=== PATIENT | male | born 1980 | race Caucasian/White ===

== ENCOUNTER → 2018-07-20 | Outpatient (CLI) | payer BC ==
--- NOTE | 2018-07-20 15:47 | US ---
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 M7 9.662 PAIN IN LEFT LOWER LEG. Technique: Multiple sonographic images of the Achilles tendon, catheter, and lower posterior thigh al seven the site of patient's pain. Findings: The Achilles tendon is normal thickness with normal fibrillar architecture and no evidence for tear. No abnormal fluid within the calf musculature or along the myofascial planes. Additional scanning along the posterior aspect of the distal thigh also shows no gross sonographic ab normality. IMPRESSION: 1. Normal appearance to the Achilles tendon. 2. No specific sonographic findings of tennis leg. Further assessment with MRI can be considered if p ersistent clinical concern.
== END | disposition home or self-care (01) ==
LOC: RADUSWWP 14:57
PROVIDERS: ATTEND Family Medicine
DX: M79.662 Pain in left lower leg (principal)

== ENCOUNTER 2019-11-01 17:19 | Emergency (ER) | payer BC ==
[2019-11-01 17:26] VITALS: TEMP 98.4
[2019-11-01] MEDS ORDERED: MORPHINE SULFATE 4 MG/ML SYRINGE IVP STA ×3 (17:52→19:31)
[2019-11-01] MEDS ORDERED: SODIUM CHLORIDE 0.9% 1,000 ML IV STA (18:03)
[2019-11-01 18:11] LABS: Basophils # (A) 0.1 k/uL (0-0.2); Basophils % (A) 1 %; Eosinophils # (A) 0.1 k/uL (0-0.7); Eosinophils % (A) 1 %; HCT 46.9 % (39.0-53.0); HGB 15.5 gm/dL (13.0-17.5); Lymphocytes # (A) 2.4 k/uL (1.0-4.8); Lymphocytes % (A) 29 %; MCH 28.9 pg (25.0-35.0); MCHC 33.2 g/dL (31.0-37.0); MCV 87.2 fL (80.0-100.0); Mean Platelet Volume 7.2; Monocytes # (A) 0.5 k/uL (0-1.0); Monocytes % (A) 6 %; Neutrophils % (A) 60 %; Platelet Count 253 k/uL (150-450); RBC 5.38 m/uL (4.30-5.90); WBC 8.4 k/uL (3.8-10.6)
[2019-11-01 18:20] LABS: Albumin 5.1 g/dL (3.5-5.0); Calcium 9.9 mg/dL (8.4-10.2); Potassium 3.9 mmol/L (3.5-5.1); Total Bilirubin 0.5 mg/dL (0.2-1.3); Total Protein 7.9 g/dL (6.3-8.2)
[2019-11-01] MEDS ORDERED: ONDANSETRON 4 MG/2 ML VIAL IVP STA (18:34)
[2019-11-01 18:59] LABS: Amorphous Sediment,Urine Rare /hpf; Appearance,Urine Clear (Clear); Bilirubin,Urine Negative (Negative); Blood,Urine Moderate (Negative); Color,Urine Yellow; Glucose,Urine (UA) Negative (Negative); Ketones,Urine Negative (Negative); Leukocyte Esterase,Urine Negative (Negative); Mucus,Urine Rare /hpf; Nitrite,Urine Negative (Negative); PH, Urine 6.5 (5.0-8.0); Protein,Urine Trace (Negative); RBC,Urine >182 /hpf (0-5); Specific Gravity,Urine 1.022 (1.001-1.035); Urobilinogen,Urine <2.0 mg/dL (<2.0); WBC,Urine 3 /hpf (0-5)
--- NOTE | 2019-11-01 19:37 | ED ---
Abdominal Pain HPI - General Chief Complaint: Abdominal Pain Stated Complaint: LT sided flank pain Time Seen by Provider: 11/01/19 17:33 Source: patient Mode of arrival: wheelchair Limitations: no limitations - History of Present Illness Initial Comments: Patient is a 39-year-old male presenting to emergency Department with a chief complaint of flank pain. Patient reports it started about 1.5 hours prior to ED arrival. He states the pain was mild last night before going to bed and did not think much of it until is started today. Denies any nausea vomiting diarrhea. Denies any night sweats fevers or chills. Does report mild obstructive urinary symptoms but started to pass urine. Denies hematuria, hematochezia or melena. Reports the pain radiates from the left flank region to the left groin. Denies any testicular pain or swelling. Denies taking medication to alleviate his symptoms. No history of kidney stones or any intra-abdominal pathologies. Patient has family history of kidney stones. - Related Data Previous Rx's Medication Instructions Recorded Tamsulosin [Flomax] 0.4 mg PO DAILY #7 cap 11/01/19 Allergies Allergy/AdvReac Type Severity Reaction Status Date / Time No Known Allergies Allergy Verified 11/01/19 17:26 Review of Systems ROS Statement: Those systems with pertinent positive or pertinent negative responses have been documented in the HPI. ROS Other: All systems not noted in ROS Statement are negative. Past Medical History Past Medical History: No Reported History History of Any Multi-Drug Resistant Organisms: None Reported Past Surgical History: No Surgical Hx Reported Past Psychological History: No Psychological Hx Reported Smoking Status: Never smoker Past Alcohol Use History: None Reported Past Drug Use History: None Reported General Exam Limitations: no limitations General appearance: alert, in distress Head exam: Present: atraumatic, normocephalic, normal inspection Eye exam: Present: normal appearance, PERRL, EOMI Pupils: Present: normal accommodation ENT exam: Present: normal exam Neck exam: Present: normal inspection, full ROM Respiratory exam: Present: normal lung sounds bilaterally Cardiovascular Exam: Present: regular rate, normal rhythm, normal heart sounds GI/Abdominal exam: Present: soft, tenderness (Left lower quadrant pain). Absent: distended, guarding, rebound, rigid, mass Extremities exam: Present: normal inspection, full ROM Back exam: Present: normal inspection, full ROM, CVA tenderness (L) Neurological exam: Present: alert, oriented X3 Psychiatric exam: Present: normal affect, normal mood Skin exam: Present: warm, dry, intact, normal color Course Vital Signs 11/01/19 11/01/19 17:24 20:54 Temperature 98.4 F Pulse Rate 86 80 Respiratory 22 16 Rate Blood Pressure 145/89 129/79 O2 Sat by Pulse 99 99 Oximetry Medical Decision Making - Medical Decision Making Patient is a 39-year-old male presenting to emergency Department with a chief complaint of left flank pain region. Eye exam patient does have left CVA tenderness with left flank pain radiating to the left groin. exam unremarkable. Patient was given symptomatic control. On reevaluation patient states the pain is still there was given more analgesia. CBC unremarkable. CMP shows decreased kidney function which I suspect is secondary to hydronephrosis. Urine does show moderate amounts of blood. CT does show a left-sided 4 mm renal calculi with mild to moderate hydronephrosis. Patient given some symptomatic control and will be discharged to follow-up with urologist. Patient also given Flomax. Patient advised to follow-up with primary care regarding decreased renal function. Strict return parameters were thoroughly discussed with patient was understanding and agreeable. Case discussed with physician. - Lab Data Result diagrams: 11/01/19 17:50 11/01/19 17:50 Lab Results 11/01/19 11/01/19 11/01/19 Range/Units 17:50 17:50 18:23 WBC 8.4 (3.8-10.6) k/uL RBC 5.38 (4.30-5.90) m/uL Hgb 15.5 (13.0-17.5) gm/dL Hct 46.9 (39.0-53.0) % MCV 87.2 (80.0-100.0) fL MCH 28.9 (25.0-35.0) pg MCHC 33.2 (31.0-37.0) g/dL RDW 13.0 (11.5-15.5) % Plt Count 253 (150-450) k/uL Neutrophils % 60 % Lymphocytes % 29 % Monocytes % 6 % Eosinophils % 1 % Basophils % 1 % Neutrophils # 5.0 (1.3-7.7) k/uL Lymphocytes # 2.4 (1.0-4.8) k/uL Monocytes # 0.5 (0-1.0) k/uL Eosinophils # 0.1 (0-0.7) k/uL Basophils # 0.1 (0-0.2) k/uL Sodium 139 (137-145) mmol/L Potassium 3.9 (3.5-5.1) mmol/L Chloride 101 (98-107) mmol/L Carbon Dioxide 27 (22-30) mmol/L Anion Gap 11 mmol/L BUN 22 H (9-20) mg/dL Creatinine 1.52 H (0.66-1.25) mg/dL Est GFR (CKD-EPI)AfAm 66 (>60 ml/min/1.73 sqM) Est GFR (CKD-EPI)NonAf 57 (>60 ml/min/1.73 sqM) Glucose 113 H (74-99) mg/dL Calcium 9.9 (8.4-10.2) mg/dL Total Bilirubin 0.5 (0.2-1.3) mg/dL AST 34 (17-59) U/L ALT 33 (4-49) U/L Alkaline Phosphatase 101 (38-126) U/L Total Protein 7.9 (6.3-8.2) g/dL Albumin 5.1 H (3.5-5.0) g/dL Amylase 109 (30-110) U/L Lipase 246 (23-300) U/L Urine Color Yellow Urine Appearance Clear (Clear) Urine pH 6.5 (5.0-8.0) Ur Specific [place] 1.022 (1.001-1.035) Urine Protein Trace H (Negative) Urine Glucose (UA) Negative (Negative) Urine Ketones Negative (Negative) Urine Blood Moderate H (Negative) Urine Nitrite Negative (Negative) Urine Bilirubin Negative (Negative) Urine Urobilinogen <2.0 (<2.0) mg/dL Ur Leukocyte Esterase Negative (Negative) Urine RBC >182 H (0-5) /hpf Urine WBC 3 (0-5) /hpf Amorphous Sediment Rare H (None) /hpf Urine Mucus Rare H (None) /hpf Disposition Clinical Impression: Hydronephrosis concurrent with and due to calculi of kidney and ureter, Kidney stone on left side Disposition: HOME SELF-CARE Condition: Stable Instructions (If sedation given, give patient instructions): Kidney Stones (ED) Additional Instructions: Please follow up with urology. Please return to emergency department if symptoms worsen. Prescriptions: Tamsulosin [Flomax] 0.4 mg PO DAILY #7 cap Is patient prescribed a controlled substance at d/c from ED?: No Referrals: Maged Hunter MD [Primary Care Provider] - 1-2 days Iker Pollard MD [STAFF PHYSICIAN] - 1-2 days Time of Disposition: 20:27
[2019-11-01] MEDS ORDERED: DIAZEPAM 5 MG/ML 2 ML INJ IVP STA (19:47)
[2019-11-01] MEDS ORDERED: KETOROLAC 30 MG/ML 1 ML VIAL IVP STA (19:47)
--- NOTE | 2019-11-01 20:02 | XR ---
EXAMINATION TYPE: XR KUB DATE OF EXAM: 11/01/2019 COMPARISON: CT 11/01/2019 INDICATION: Left flank pain TECHNIQUE: Single view abdomen FINDINGS: Nonspecific bowel gas is present. Psoas margins are normal. No organomegaly is present. There is a 0.7 cm calcification in the right hemipelvis could be a distal ureteral stone. Phleboliths could be considered within the differential. The calcification identified just above the left ureterovesical junction on CT examination is not willi[place] evident on the plain films. IMPRESSION: 1. Distal right calcification which is nonspecific could be a distal ureteral stone or phlebolith. 2. No suspicious x-ray abnormality to account for left flank pain, please see CT report of same date.
--- NOTE | 2019-11-01 20:13 | CT ---
EXAMINATION TYPE: CT abdomen pelvis wo con DATE OF EXAM: 11/01/2019 COMPARISON: None HISTORY: Left sided flank and inguinal pain. CT DLP: 1033.4 mGycm Automated exposure control for dose reduction was used. TECHNIQUE: Helical acquisition of images was performed from the lung bases through the pelvis. FINDINGS: Within the limitations of noncontrast CT the following observations are made. LUNG BASES: No significant abnormality is appreciated. LIVER/GB: No significant abnormality is appreciated. PANCREAS: No significant abnormality is seen. SPLEEN: No significant abnormality is seen. ADRENALS: No significant abnormality is seen. KIDNEYS AND URETERS AND BLADDER: There is mild-moderate left-sided hydronephrosis and hydroureter, do wn to a 4 mm calcification in the distal most left ureter, approximately 2 cm proximal to the left UV J. There are a couple 1 mm nonobstructing left renal calcifications. The right kidney and right collecting systems are negative. The urinary bladder is unremarkable. PNEUMOPERITONEUM: No pneumoperitoneum. No peritoneal fluid. RETROPERITONEAL ADENOPATHY: None visualized REPRODUCTIVE ORGANS: No significant abnormality is seen PELVIC ADENOPATHY: None visualized. OSSEOUS STRUCTURES: No significant abnormality is seen. BOWEL: No significant abnormality is seen. IMPRESSION: MILD-MODERATE LEFT OBSTRUCTIVE UROPATHY, SECONDARY TO 4 MM CALCIFICATION IN THE DISTAL LEFT URETER.
[2019-11-01] MEDS ORDERED: ACET/COD 300 MG/30 MG STARTER PACK 6 TAB BTL PO STA (20:26)
[2019-11-01 20:56] VITALS: BP 129/79; PULSE 80; RESP 16
== END 2019-11-01 21:00 | disposition home or self-care (01) ==
LOC: EC 17:19
DX: N13.2 Hydronephrosis with renal and ureteral calculous obstruction (principal); Z84.1 Family history of disorders of kidney and ureter; Z53.8 Procedure and treatment not carried out for other reasons
CPT/HCPCS: 99284; 96374; 96375 ×3; 96376; 96361; 36415; 80053; 82150; 83690; 85025; 81001; 74018; 74176; J2270; J3360; J2405; J1885

== ENCOUNTER 2019-11-03 03:49 | Emergency (ER) | payer BC ==
[2019-11-03] MEDS ORDERED: SODIUM CHLORIDE 0.9% 1,000 ML IV STA (04:01)
[2019-11-03] MEDS ORDERED: ONDANSETRON ODT 8 MG TAB.RAPDIS PO STA (04:01)
[2019-11-03] MEDS ORDERED: KETOROLAC 30 MG/ML 1 ML VIAL IVP STA (04:01)
--- NOTE | 2019-11-03 04:01 | ED ---
General Adult HPI - General Stated complaint: Kidney Stone Revisit Time Seen by Provider: 11/03/19 04:00 - History of Present Illness Initial comments: Patient is a 39-year-old gentleman with a known psych any stone which was identified on computed tomography scan 3 days ago. Patient returns the ER this morning for evaluation of severe stabbing left-sided flank pain. Pain is associated nausea no vomiting. Urinary frequency but no hesitancy or dysuria. She reports he's been drinking as much as possible trying to stay hydrated. He's been taking Tylenol 3 with no improvement. He has taken a daily Flomax with no improvement. - Related Data Previous Rx's Medication Instructions Recorded Tamsulosin [Flomax] 0.4 mg PO DAILY #7 cap 11/01/19 Ketorolac [Toradol] 10 mg PO Q6HR #30 tab 11/03/19 Allergies Allergy/AdvReac Type Severity Reaction Status Date / Time No Known Allergies Allergy Verified 11/03/19 04:03 Review of Systems ROS Statement: Those systems with pertinent positive or pertinent negative responses have been documented in the HPI. ROS Other: All systems not noted in ROS Statement are negative. Past Medical History Past Medical History: No Reported History History of Any Multi-Drug Resistant Organisms: None Reported Past Surgical History: No Surgical Hx Reported Past Psychological History: No Psychological Hx Reported Smoking Status: Never smoker Past Alcohol Use History: None Reported Past Drug Use History: None Reported General Exam - General Exam Comments Initial Comments: Physical Exam GENERAL: Patient is well-developed and well-nourished. Patient is nontoxic and well-hydrated and is in no distress. HENT: Normocephalic, Atraumatic. EYES: PERRL, EOMI PULMONARY: Unlabored respirations. CARDIOVASCULAR: RRR Warm and well perfused extremities ABDOMEN: Non-distended SKIN: No rashes or bruising : Deferred NEUROLOGIC: Alert and oriented Normal speech Normal gait MUSCULOSKELETAL: Moving all extremities with no apparent injury PSYCHIATRIC: No SI/HI Course Vital Signs 11/03/19 11/03/19 03:59 05:28 Temperature 98.6 F 98.6 F Pulse Rate 92 78 Respiratory 22 15 Rate Blood Pressure 143/83 122/79 O2 Sat by Pulse 100 98 Oximetry Medical Decision Making - Medical Decision Making The patient seen and evaluated, history was obtained from the patient and review of medical record. Patient was treated with IV fluids Zofran and Toradol. Upon reevaluation patient complete resolution of his pain was resting comfortably. Patient referral plan for discharge home continued supportive care. - Lab Data Result diagrams: 11/03/19 04:17 11/03/19 04:17 Lab Results 11/03/19 11/03/19 11/03/19 Range/Units 04:17 04:17 04:17 WBC 11.8 H (3.8-10.6) k/uL RBC 4.95 (4.30-5.90) m/uL Hgb 15.0 (13.0-17.5) gm/dL Hct 43.1 (39.0-53.0) % MCV 87.1 (80.0-100.0) fL MCH 30.2 (25.0-35.0) pg MCHC 34.7 (31.0-37.0) g/dL RDW 12.7 (11.5-15.5) % Plt Count 206 (150-450) k/uL Neutrophils % 84 % Lymphocytes % 9 % Monocytes % 6 % Eosinophils % 0 % Basophils % 0 % Neutrophils # 9.9 H (1.3-7.7) k/uL Lymphocytes # 1.0 (1.0-4.8) k/uL Monocytes # 0.7 (0-1.0) k/uL Eosinophils # 0.0 (0-0.7) k/uL Basophils # 0.0 (0-0.2) k/uL Sodium 135 L (137-145) mmol/L Potassium 4.7 (3.5-5.1) mmol/L Chloride 101 (98-107) mmol/L Carbon Dioxide 24 (22-30) mmol/L Anion Gap 10 mmol/L BUN 26 H (9-20) mg/dL Creatinine 1.64 H (0.66-1.25) mg/dL Est GFR (CKD-EPI)AfAm 60 (>60 ml/min/1.73 sqM) Est GFR (CKD-EPI)NonAf 52 (>60 ml/min/1.73 sqM) Glucose 114 H (74-99) mg/dL Calcium 9.5 (8.4-10.2) mg/dL Total Bilirubin 1.1 (0.2-1.3) mg/dL AST 37 (17-59) U/L ALT 27 (4-49) U/L Alkaline Phosphatase 92 (38-126) U/L Total Protein 7.4 (6.3-8.2) g/dL Albumin 4.6 (3.5-5.0) g/dL Urine Color Yellow Urine Appearance Clear (Clear) Urine pH 5.5 (5.0-8.0) Ur Specific [place] 1.020 (1.001-1.035) Urine Protein Trace H (Negative) Urine Glucose (UA) Negative (Negative) Urine Ketones Negative (Negative) Urine Blood Moderate H (Negative) Urine Nitrite Negative (Negative) Urine Bilirubin Negative (Negative) Urine Urobilinogen <2.0 (<2.0) mg/dL Ur Leukocyte Esterase Trace H (Negative) Urine RBC 3 (0-5) /hpf Urine WBC 5 (0-5) /hpf Ur Squamous Epith Cells <1 (0-4) /hpf Uric Acid Crystals Rare H (None) /hpf Urine Mucus Rare H (None) /hpf Disposition Clinical Impression: Kidney stone on left side Disposition: HOME SELF-CARE Condition: Stable Additional Instructions: Follow up with your primary doctor within 2-3 days. Follow up with a Urologist this week (we will give you a list of urologists, but make sure they accept your insurance). ?Please call as soon as possible for an appointment. You will be given a prescription for Flomax (0.4mg daily) please rock picker the medication as soon as possible and take as directed. Use Motrin (also called Ibuprofen or Advil) 400-800 mg every 6 hours as needed for pain. Take this with food, if you have any stomach discomfort while taking Motrin, you can use TUMS to help. Drink plenty of fluids, avoid caffeine & alcohol. Please continue taking your home medications as directed. Do not use alcohol when taking any medication (especially antibiotics, tylenol or other pain medication) unless you check with the doctor or pharmacist. Any worsening pain, fever, chills, difficulty urinating, or any other concerns, please see your doctor immediately or return to Emergency Department right away. Prescriptions: Ketorolac [Toradol] 10 mg PO Q6HR #30 tab Is patient prescribed a controlled substance at d/c from ED?: No Referrals: Maged Hunter MD [Primary Care Provider] - 1-2 days
[2019-11-03 04:03] VITALS: TEMP 98.6
--- NOTE | 2019-11-03 04:33 | XR ---
EXAMINATION TYPE: XR KUB DATE OF EXAM: 11/03/2019 COMPARISON: 11/01/2019 HISTORY: Left sided flank pain TECHNIQUE: 2 views upright FINDINGS: There is no sign of intestinal obstruction or pneumoperitoneum. Fecal pattern is normal. Th ere are no pathologic calcifications over the kidneys. Lung bases are clear. Bony structures are inta ct. IMPRESSION: Nonacute abdomen. No change.
[2019-11-03 04:42] LABS: Basophils % (A) 0 %; Eosinophils % (A) 0 %; HCT 43.1 % (39.0-53.0); Lymphocytes % (A) 9 %; MCH 30.2 pg (25.0-35.0); MCHC 34.7 g/dL (31.0-37.0); MCV 87.1 fL (80.0-100.0); Mean Platelet Volume 7.2; Monocytes # (A) 0.7 k/uL (0-1.0); Monocytes % (A) 6 %; Neutrophils # (A) 9.9 k/uL (1.3-7.7); Neutrophils % (A) 84 %; Platelet Count 206 k/uL (150-450); RBC 4.95 m/uL (4.30-5.90); RDW 12.7 % (11.5-15.5); WBC 11.8 k/uL (3.8-10.6)
[2019-11-03 04:46] LABS: Appearance,Urine Clear (Clear); Bilirubin,Urine Negative (Negative); Blood,Urine Moderate (Negative); Color,Urine Yellow; Glucose,Urine (UA) Negative (Negative); Ketones,Urine Negative (Negative); Leukocyte Esterase,Urine Trace (Negative); Mucus,Urine Rare /hpf; Nitrite,Urine Negative (Negative); PH, Urine 5.5 (5.0-8.0); Protein,Urine Trace (Negative); RBC,Urine 3 /hpf (0-5); Squamous Epithelial Cell,Urine <1 /hpf (0-4); Uric Acid Crystals,Urine Rare /hpf; Urobilinogen,Urine <2.0 mg/dL (<2.0); WBC,Urine 5 /hpf (0-5)
[2019-11-03 04:54] LABS: Albumin 4.6 g/dL (3.5-5.0); Calcium 9.5 mg/dL (8.4-10.2); Potassium 4.7 mmol/L (3.5-5.1); Total Bilirubin 1.1 mg/dL (0.2-1.3); Total Protein 7.4 g/dL (6.3-8.2)
[2019-11-03 05:30] VITALS: BP 122/79; PULSE 78; RESP 15
== END 2019-11-03 05:12 | disposition home or self-care (01) ==
LOC: EC 03:49
DX: N20.0 Calculus of kidney (principal)
CPT/HCPCS: 36415; 80053; 85025; 81001; 74018; 99283; 96374; 96361; J1885

== ENCOUNTER 2020-10-31 10:05 | Day surgery (SDC) | payer BC ==
[2020-10-27 09:54] VITALS: BMI 32.7
[~2020-10-31 10:05] MED LIST: LACTATED RINGERS 1,000 ML IV SCH
[2020-10-31 10:41] VITALS: RESP 16; TEMP 97.4
[2020-10-31] MEDS ORDERED: LIDOCAINE 1% (10MG/ML) FOR IV START INTRADERMA ONE (10:44)
[2020-10-31] MEDS ORDERED: PROPOFOL 10 MG/ML 20 ML VIAL IV ONE (11:27)
--- NOTE | 2020-10-31 11:47 | P.PCN ---
Date of Procedure: 10/31/20 Procedure(s) Performed: BRIEF HISTORY: Patient is a -40year-old pleasant white male scheduled for an elective colonoscopy as a part of screening for colon rectal neoplasia. His grandfather was diagnosed with colon cancer at age 70. PROCEDURE PERFORMED: Colonoscopy this with snare polypectomy PREOPERATIVE DIAGNOSIS: Screening for colon cancer/family history of colon cancerIV sedation per Anesthesia. PROCEDURE: After informed consent was obtained, the patient, was brought into the endoscopy unit. IV sedation was administered by Anesthesia under continuous monitoring. Digital rectal examination was normal. Initially the Olympus CF-160 flexible video colonoscope was then inserted in the rectum, gradually advanced into the cecum without any difficulty. Careful examination was performed as the scope was gradually being withdrawn. Ileocecal valve and the appendiceal orifice were visualized and appeared normal. Prep was fair.. Mucosa of the cecum, ascending colon, transverse colon, descending colon, sigmoid colon, appeared normal. In the mid rectum there was a 1 m polyp removed by snare polypectomy. Retroflexion was performed in the rectum and no lesions were seen. The patient tolerated the procedure well. IMPRESSION: 1 cm mid rectal polyp status post polypectomy Rest of the colon appeared normal RECOMMENDATIONS: Findings of this examination were discussed with the patient .as well as his family. He was advised to follow with the biopsy results. If the biopsy shows an adenoma he can have a repeat colonoscopy in 3-5 years.
[2020-10-31 12:10] VITALS: BP 130/86; PULSE 68
== END 2020-10-31 12:26 | disposition home or self-care (01) ==
LOC: ORWHC2ENDO 10:05
PROVIDERS: ATTEND Internal Medicine Gastroenterology
DX: Z12.11 Encounter for screening for malignant neoplasm of colon (principal); D12.8 Benign neoplasm of rectum; Z80.0 Family history of malignant neoplasm of digestive organs
CPT/HCPCS: 88305; 45385; J2704

== ENCOUNTER 2021-08-01 15:55 | Emergency (ER) | payer BC ==
[2021-08-01 16:12] VITALS: RESP 16; TEMP 98
--- NOTE | 2021-08-01 16:50 | ED ---
General Adult HPI - General Source: patient Mode of arrival: ambulatory Limitations: no limitations <Karen Dove - Last Filed: 08/01/21 22:20> <Linda Shah - Last Filed: 08/03/21 00:59> - General Chief complaint: Shortness of Breath Stated complaint: SACHA/Lightheaded Time Seen by Provider: 08/01/21 16:35 - History of Present Illness Initial comments: 41 year-old male patient presents to the emergency department for evaluation of lightheadedness, dizziness, feeling unwell. States he had several episodes of lightheadedness prior to leaving for work. States that he thought he would improve so he drove to work. States he was going up the stairs to work when he became very dizzy, felt like he was going to pass out, states he feels like his neck was swelling. He denies any chest pain, chest tightness, or shortness of breath with the episode. States he was very sweaty and shaky. He reports feeling very hot, then very cold. He denies any chronic medical conditions. Takes some vitamins daily. Today he did take a hydroxy-lean fat burner. States that he generally takes them a couple times per week for the last few months. Never had any reaction. Patient denies any recent rash, fever, chills, cough, abdominal pain, nausea, vomiting, diarrhea, constipation, back pain, numbness, tingling, hematuria, dysuria, urinary urgency, urinary frequency, or any other complaints. (Karen Dove) - Related Data Home Medications Medication Instructions Recorded Confirmed Multivit-Min/Folic/Vit K/Lycop 1 each PO DAILY 10/27/20 10/27/20 [Men's Multivitamin Tablet] Allergies Allergy/AdvReac Type Severity Reaction Status Date / Time No Known Allergies Allergy Verified 08/01/21 16:08 Review of Systems ROS Other: All systems not noted in ROS Statement are negative. <Karen Dove - Last Filed: 08/01/21 22:20> ROS Other: All systems not noted in ROS Statement are negative. <Linda Shah - Last Filed: 08/03/21 00:59> ROS Statement: Those systems with pertinent positive or pertinent negative responses have been documented in the HPI. Past Medical History Past Medical History: No Reported History Additional Past Medical History / Comment(s): FAMILY HX COLON CANCER History of Any Multi-Drug Resistant Organisms: None Reported Past Surgical History: No Surgical Hx Reported Past Anesthesia/Blood Transfusion Reactions: Motion Sickness Additional Past Anesthesia/Blood Transfusion Reaction / Comment(s): no a nesthesia hx. Past Psychological History: No Psychological Hx Reported Smoking Status: Unknown if ever smoked Past Alcohol Use History: None Reported Past Drug Use History: None Reported - Past Family History Mother Family Medical History: Unable to Obtain <Karen Dove M - Last Filed: 08/01/21 22:20> General Exam Limitations: no limitations General appearance: alert, in no apparent distress, other (Physical well- developed, well-nourished adult male patient in no acute distress. Vital signs upon presentation temperature 98.0F, pulse 120, respirations 16, blood pressure 148/83, pulse ox 98% on room air. This is a well-developed, well-nourished adult male patient in no acute distress. Vital s) Eye exam: Present: normal appearance, PERRL, EOMI. Absent: scleral icterus, conjunctival injection, nystagmus, periorbital swelling ENT exam: Present: normal exam, normal oropharynx, mucous membranes moist Respiratory exam: Present: normal lung sounds bilaterally. Absent: respiratory distress, wheezes, rales, rhonchi, stridor Cardiovascular Exam: Present: regular rate, normal rhythm, normal heart sounds. Absent: systolic murmur, diastolic murmur, rubs, gallop, clicks GI/Abdominal exam: Present: soft, normal bowel sounds. Absent: distended, tenderness, guarding, rebound, rigid Neurological exam: Present: alert, oriented X3, CN II-XII intact Psychiatric exam: Present: normal affect, normal mood Skin exam: Present: warm, dry, intact, normal color. Absent: rash <Karen Dove M - Last Filed: 08/01/21 22:20> Course Vital Signs 08/01/21 08/01/21 16:08 19:30 Temperature 98 F Pulse Rate 120 H 82 Respiratory 16 16 Rate Blood Pressure 148/83 141/80 O2 Sat by Pulse 98 99 Oximetry EKG Findings - EKG Comments: EKG Findings:: EKG obtained at 1621 shows sinus tachycardia with a ventricular rate of 114, FL interval 152, QRS duration 96, QT 264, QTC 363. No evidence of ST elevation or depression. <Karen Dove - Last Filed: 08/01/21 22:20> Medical Decision Making - Lab Data Result diagrams: 08/01/21 17:00 08/01/21 17:00 - EKG Data -: EKG Interpreted by Me - Radiology Data Radiology results: report reviewed, image reviewed <Karen Dove - Last Filed: 08/01/21 22:20> - Lab Data Result diagrams: 08/01/21 17:00 08/01/21 17:00 <Linda Shah - Last Filed: 08/03/21 00:59> - Medical Decision Making 41-year-old male patient percents to the emergency department today for evaluation of lightheadedness, near-syncope, shakiness. Physical examination di d reveal clear equal lung sounds. He denied chest pain. Abdomen soft and nontender. He is neurologically intact. Initial EKG showed sinus tachycardia, this was repeated and was improved. Vital signs remained stable. Chest x-ray negative. Labs unremarkable. Upon reevaluation is resting comfortably in bed states he feels back to normal. He'll be discharged home to follow-up with his primary care physician for recheck in 1-2 days. Return parameters were discussed in detail. He verbalizes understanding and agrees with this plan. Case discussed with my attending Dr. Shah. (Karen Dove) I was available for consultation in the emergency department. The history and physical exam were done by the midlevel provider. I was consulted for this patients care. I reviewed the case with the midlevel provider and based on their presentation of the patient, I agree with the assessment, medical decision making and plan of care as documented. Chart was dictated using [employer] dictation software. Attempts were made to correct any dictation errors however some typographical errors may persist. (Linda Shah) - Lab Data Lab Results 08/01/21 08/01/21 08/01/21 Range/Units 17:00 17:00 17:00 WBC 8.2 (3.8-10.6) k/uL RBC 5.81 (4.30-5.90) m/uL Hgb 17.2 (13.0-17.5) gm/dL Hct 51.8 (39.0-53.0) % MCV 89.1 (80.0-100.0) fL MCH 29.5 (25.0-35.0) pg MCHC 33.1 (31.0-37.0) g/dL RDW 12.7 (11.5-15.5) % Plt Count 194 (150-450) k/uL MPV 7.3 Neutrophils % 78 % Lymphocytes % 15 % Monocytes % 5 % Eosinophils % 0 % Basophils % 0 % Neutrophils # 6.4 (1.3-7.7) k/uL Lymphocytes # 1.2 (1.0-4.8) k/uL Monocytes # 0.4 (0-1.0) k/uL Eosinophils # 0.0 (0-0.7) k/uL Basophils # 0.0 (0-0.2) k/uL PT 10.4 (9.0-12.0) sec INR 1.0 (<1.2) APTT 24.0 (22.0-30.0) sec Sodium 139 (137-145) mmol/L Potassium 4.0 (3.5-5.1) mmol/L Chloride 104 (98-107) mmol/L Carbon Dioxide 21 L (22-30) mmol/L Anion Gap 14 mmol/L BUN 18 (9-20) mg/dL Creatinine 1.37 H (0.66-1.25) mg/dL Est GFR (CKD-EPI)AfAm 73 (>60 ml/min/1.73 sqM) Est GFR (CKD-EPI)NonAf 63 (>60 ml/min/1.73 sqM) Glucose 115 H (74-99) mg/dL Calcium 10.1 (8.4-10.2) mg/dL Magnesium 2.0 (1.6-2.3) mg/dL Total Bilirubin 0.6 (0.2-1.3) mg/dL AST 36 (17-59) U/L ALT 28 (4-49) U/L Alkaline Phosphatase 86 (38-126) U/L Troponin I (0.000-0.034) ng/mL Total Protein 7.9 (6.3-8.2) g/dL Albumin 5.1 H (3.5-5.0) g/dL Coronavirus (PCR) (Not Detectd) 08/01/21 08/01/21 Range/Units 17:00 17:00 WBC (3.8-10.6) k/uL RBC (4.30-5.90) m/uL Hgb (13.0-17.5) gm/dL Hct (39.0-53.0) % MCV (80.0-100.0) fL MCH (25.0-35.0) pg MCHC (31.0-37.0) g/dL RDW (11.5-15.5) % Plt Count (150-450) k/uL MPV Neutrophils % % Lymphocytes % % Monocytes % % Eosinophils % % Basophils % % Neutrophils # (1.3-7.7) k/uL Lymphocytes # (1.0-4.8) k/uL Monocytes # (0-1.0) k/uL Eosinophils # (0-0.7) k/uL Basophils # (0-0.2) k/uL PT (9.0-12.0) sec INR (<1.2) APTT (22.0-30.0) sec Sodium (137-145) mmol/L Potassium (3.5-5.1) mmol/L Chloride (98-107) mmol/L Carbon Dioxide (22-30) mmol/L Anion Gap mmol/L BUN (9-20) mg/dL Creatinine (0.66-1.25) mg/dL Est GFR (CKD-EPI)AfAm (>60 ml/min/1.73 sqM) Est GFR (CKD-EPI)NonAf (>60 ml/min/1.73 sqM) Glucose (74-99) mg/dL Calcium (8.4-10.2) mg/dL Magnesium (1.6-2.3) mg/dL Total Bilirubin (0.2-1.3) mg/dL AST (17-59) U/L ALT (4-49) U/L Alkaline Phosphatase (38-126) U/L Troponin I <0.012 (0.000-0.034) ng/mL Total Protein (6.3-8.2) g/dL Albumin (3.5-5.0) g/dL Coronavirus (PCR) Not Detected (Not Detectd) - EKG Data EKG Comments: EKG obtained at 1852 shows normal sinus rhythm with a ventricular rate 88, FL interval 160, QRS duration 96, QT 338, QTC 408. No evidence of ST elevation or depression. (Karen Dove) - Radiology Data Two-view x-ray of the chest is obtained. Report reviewed in its entirety. Impression by Dr. Fallon shows normal chest. (Karen Dove) Disposition Is patient prescribed a controlled substance at d/c from ED?: No Time of Disposition: 18:59 <Karen Dove - Last Filed: 08/01/21 22:20> <Linda Shah - Last Filed: 08/03/21 00:59> Clinical Impression: Near syncope, Medication reaction Disposition: HOME SELF-CARE Condition: Good Instructions (If sedation given, give patient instructions): Near Syncope (ED) Additional Instructions: Increase fluids. Rest. Follow up with the primary care physician for recheck as soon as possible. Discuss possibly obtaining echocardiogram of the heart. Return to the emergency department for any new, worsening, or concerning symptoms. Referrals: Maged Hunter MD [Primary Care Provider] - 1-2 days
[2021-08-01 17:26] LABS: Basophils % (A) 0 %; Eosinophils % (A) 0 %; HCT 51.8 % (39.0-53.0); HGB 17.2 gm/dL (13.0-17.5); Lymphocytes # (A) 1.2 k/uL (1.0-4.8); Lymphocytes % (A) 15 %; MCH 29.5 pg (25.0-35.0); MCHC 33.1 g/dL (31.0-37.0); MCV 89.1 fL (80.0-100.0); Mean Platelet Volume 7.3; Monocytes # (A) 0.4 k/uL (0-1.0); Monocytes % (A) 5 %; Neutrophils # (A) 6.4 k/uL (1.3-7.7); Neutrophils % (A) 78 %; Platelet Count 194 k/uL (150-450); RBC 5.81 m/uL (4.30-5.90); RDW 12.7 % (11.5-15.5); WBC 8.2 k/uL (3.8-10.6)
[2021-08-01 17:43] LABS: Albumin 5.1 g/dL (3.5-5.0); Calcium 10.1 mg/dL (8.4-10.2); Total Bilirubin 0.6 mg/dL (0.2-1.3); Total Protein 7.9 g/dL (6.3-8.2)
[2021-08-01 17:53] LABS: Prothrombin Time 10.4 sec (9.0-12.0)
--- NOTE | 2021-08-01 18:20 | XR ---
EXAMINATION TYPE: XR chest 2V DATE OF EXAM: 08/01/2021 COMPARISON: NONE HISTORY: Difficulty breathing TECHNIQUE: 2 view FINDINGS: Heart and mediastinum are normal. Lungs are clear. Diaphragm is normal. Bony thorax is inta ct. IMPRESSION: Normal chest.
[2021-08-01 19:35] VITALS: BP 141/80; PULSE 82
== END 2021-08-01 19:30 | disposition home or self-care (01) ==
LOC: EC 15:55
DX: R42 Dizziness and giddiness (principal); T50.905A Adverse effect of unspecified drugs, medicaments and biological substances, initial encounter; R06.00 Dyspnea, unspecified; Z20.822 Contact with and (suspected) exposure to COVID-19
CPT/HCPCS: 36415; 71046; 80053; 83735; 84484; 85025; 85610; 85730; 87635; 93005; 99285

== ENCOUNTER → 2021-12-24 | Outpatient (CLI) | payer BC ==
--- NOTE | 2021-12-24 08:20 | CT ---
EXAMINATION TYPE: CT angio chest DATE OF EXAM: 12/24/2021 COMPARISON: None available HISTORY: SOB CT DLP: 570.4 mGy.cm. Automated Exposure Control for Dose Reduction was Utilized. TECHNIQUE AND CONTRAST: CTA scan of the thorax is performed with IV Contrast, patient injected with 63 mL of Isovue 370, pulm onary angiogram protocol. MIP Images are created on CT scanner and reviewed. FINDINGS: No definite filling defect within the pulmonary trunk, main pulmonary arteries, lobar, segmental and subsegmental branches to suggest pulmonary embolism. Distal subsegmental branches are suboptimally as sessed. The pulmonary trunk measures 2.5 cm. No gross cardiomegaly. Unremarkable lungs. Patent central airways. No pleural or pericardial effusion. No pathologically enl arged lymph nodes in the chest. Suspected left renal cyst, not completely included in the scan. No ag gressive bone lesion. IMPRESSION: No major or central pulmonary embolism. No definite acute abnormality seen in the chest.
== END | disposition home or self-care (01) ==
LOC: RADCTMAIN 07:31
PROVIDERS: ATTEND Family Medicine
DX: R06.00 Dyspnea, unspecified (principal)
CPT/HCPCS: 71275; Q9967

== ENCOUNTER 2022-08-30 01:11 | Emergency (ER) | payer BC ==
--- NOTE | 2022-08-30 01:19 | ED ---
Chest Pain HPI - General Chief Complaint: Chest Pain Stated Complaint: Chest Pain Time Seen by Provider: 08/30/22 01:15 Source: patient, RN notes reviewed, old records reviewed Mode of arrival: ambulatory Limitations: no limitations - History of Present Illness Initial Comments: This is a 42-year-old male to the emergency department for evaluation patient presents today for evaluation regards to left-sided shoulder pain left-sided chest pain left-sided flank pain pain into his left leg. Patient has history of high cholesterol on testosterone replacement. Patient states he may have been doing some working out which causes of pain in his shoulder earlier in the week but symptoms have been persistent, not: The leg. Patient cannot reproduce his s ymptoms. No fevers no cough congestion of travel history no sick contacts no shortness of breath MD Complaint: chest pain, other (Abdominal pain) -: week(s) Onset: during rest, during exertion Pain Location: left chest Pain Radiation: back Severity: moderate Severity scale (1-10): 4 Quality: sharp Consistency: intermittent Improves With: nothing Worsens With: nothing Anginal Symptoms: other (0) Other Symptoms: other (0) Treatments Prior to Arrival: none - Related Data Home Medications Medication Instructions Recorded Confirmed Anastrozole [Arimidex] 1 mg PO TUTHSA 01/10/22 01/10/22 Testosterone Cypionate 200 mg IM MO 01/10/22 01/10/22 [Depo-Testosterone] Allergies Allergy/AdvReac Type Severity Reaction Status Date / Time No Known Allergies Allergy Verified 08/30/22 01:14 Review of Systems ROS Statement: Those systems with pertinent positive or pertinent negative responses have been documented in the HPI. ROS Other: All systems not noted in ROS Statement are negative. EKG Findings - EKG Comments: EKG Findings:: EKG shows sinus 61 WV 160 QRS 98 QTc 370 Past Medical History Past Medical History: No Reported History Additional Past Medical History / Comment(s): FAMILY HX COLON CANCER History of Any Multi-Drug Resistant Organisms: None Reported Past Surgical History: No Surgical Hx Reported Past Anesthesia/Blood Transfusion Reactions: Motion Sickness Additional Past Anesthesia/Blood Transfusion Reaction / Comment(s): no anesthesia hx. Past Psychological History: No Psychological Hx Reported Smoking Status: Former smoker Past Alcohol Use History: Occasional Past Drug Use History: None Reported - Past Family History Mother Family Medical History: Unable to Obtain General Exam Limitations: no limitations General appearance: alert, in no apparent distress Head exam: Present: atraumatic, normocephalic, normal inspection Eye exam: Present: normal appearance, PERRL, EOMI. Absent: scleral icterus, conjunctival injection, periorbital swelling ENT exam: Present: normal exam, mucous membranes moist Neck exam: Present: normal inspection. Absent: tenderness, meningismus, lymphadenopathy Respiratory exam: Present: normal lung sounds bilaterally. Absent: respiratory distress, wheezes, rales, rhonchi, stridor Cardiovascular Exam: Present: regular rate, normal rhythm, normal heart sounds. Absent: systolic murmur, diastolic murmur, rubs, gallop, clicks GI/Abdominal exam: Present: soft, normal bowel sounds. Absent: distended, tenderness, guarding, rebound, rigid Extremities exam: Present: normal inspection, full ROM, normal capillary refill. Absent: tenderness, pedal edema, joint swelling, calf tenderness Back exam: Present: normal inspection Neurological exam: Present: alert, oriented X3, CN II-XII intact Psychiatric exam: Present: normal affect, normal mood Skin exam: Present: warm, dry, intact, normal color. 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 Patient Dese for evaluation of chest pain flank pain back pain shoulder pain and pain of the leg. No acute cause found. Patient discharged Disposition Clinical Impression: Atypical chest pain Disposition: HOME SELF-CARE Condition: Good Instructions (If sedation given, give patient instructions): Chest Pain (ED) Is patient prescribed a controlled substance at d/c from ED?: No Referrals: Maged Hunter MD [Primary Care Provider] - 1-2 days Time of Disposition: 03:30
[2022-08-30 01:31] VITALS: TEMP 98
--- NOTE | 2022-08-30 02:10 | XR ---
EXAMINATION TYPE: XR chest 1V portable DATE OF EXAM: 08/30/2022 COMPARISON: 01/10/2022 HISTORY: Chest pain TECHNIQUE: FINDINGS: Heart is normal. Lungs are clear of infiltrate. No heart failure. There are chest leads. Azar ny thorax is intact. IMPRESSION: Normal chest. No change.
[2022-08-30 02:15] LABS: ALT 23 U/L (4-49); AST 35 U/L (17-59); African American GFR (CKD) >90 (>60 ml/min/1.73 sqM); Albumin 4.3 g/dL (3.5-5.0); Alkaline Phosphatase 89 U/L (38-126); Anion Gap 10 mmol/L; Blood Urea Nitrogen 23 mg/dL (9-20); Calcium 7.9 mg/dL (8.4-10.2); Carbon Dioxide 22 mmol/L (22-30); Chloride 108 mmol/L (98-107); Glucose 94 mg/dL (74-99); Lipase 317 U/L (23-300); Magnesium 1.7 mg/dL (1.6-2.3); Non-African American GFR(CKD) 90 (>60 ml/min/1.73 sqM); Sodium 140 mmol/L (137-145); Total Bilirubin 1.1 mg/dL (0.2-1.3); Total Protein 6.7 g/dL (6.3-8.2)
[2022-08-30 02:16] LABS: Potassium 4.6 mmol/L (3.5-5.1)
[2022-08-30 02:22] LABS: Basophils % (A) 1 %; Eosinophils # (A) 0.1 k/uL (0-0.7); Eosinophils % (A) 2 %; HCT 50.7 % (39.0-53.0); HGB 17.4 gm/dL (13.0-17.5); Lymphocytes # (A) 2.3 k/uL (1.0-4.8); Lymphocytes % (A) 36 %; MCH 29.9 pg (25.0-35.0); MCHC 34.3 g/dL (31.0-37.0); MCV 87.1 fL (80.0-100.0); Mean Platelet Volume 8.6; Monocytes # (A) 0.4 k/uL (0-1.0); Monocytes % (A) 6 %; Neutrophils # (A) 3.4 k/uL (1.3-7.7); Neutrophils % (A) 53 %; Platelet Count 190 k/uL (150-450); RBC 5.82 m/uL (4.30-5.90); RDW 12.7 % (11.5-15.5); WBC 6.3 k/uL (3.8-10.6)
[2022-08-30 02:40] LABS: INR 1.1 (<1.2); Partial Thromboplastin Time 29.1 sec (22.0-30.0); Prothrombin Time 11.5 sec (9.0-12.0)
--- NOTE | 2022-08-30 03:06 | CT ---
EXAMINATION TYPE: CT abdomen pelvis w con DATE OF EXAM: 08/30/2022 COMPARISON: 11/01/2019 HISTORY: Chest pain x [address] DLP: 564 mGycm Automated exposure control for dose reduction was used. CONTRAST: Performed with IV Contrast, patient injected with 100 mL of Isovue 370. Images obtained from the diaphragm to the floor the pelvis with the IV contrast. The lung bases are clear. No pleural effusion. Heart size is normal. No pericardial effusion. There are a few small cysts in the liver that measure up to 1.5 cm. Spleen is intact. No pancreatic m ass. The stomach is intact. The bile ducts are not dilated. Gallbladder appears normal. There is no adrenal mass. Kidneys show satisfactory contrast opacification. There is 2 cm left renal parapelvic cyst. There is no hydronephrosis. Delayed images show normal renal excretion. No retroperi toneal adenopathy. The bladder distends smoothly. No inguinal hernia. No free fluid in the pelvis. Ap pendix is posterior and medial and appears normal. There is no mesenteric edema. No ascites or free air. No sign of a bowel obstruction. The lumbar vert ebrae have normal alignment. Disc spaces are normal. Posterior elements are intact. No compression fr acture. The bony pelvis is intact. The hip joints are intact. IMPRESSION: Normal appendix. There is clearing of the left ureteral calculus and left-sided hydronephrosis compar ed to old exam. No acute abnormality.
--- NOTE | 2022-08-30 03:14 | CT ---
EXAMINATION TYPE: CT angio chest DATE OF EXAM: 08/30/2022 COMPARISON: 12/24/2021 HISTORY: chest pain x [address] DLP: 1722.9 mGycm Automated exposure control for dose reduction was used. CONTRAST: Performed with IV Contrast, patient injected with 100 mL of Isovue 370. There are Three-D postprocessed images. The lungs are clear of infiltrate. No pleural effusion or pneumothorax. Heart size is normal. No sharath cardial effusion. There are no hilar masses. There is no mediastinal adenopathy. Thoracic aorta is in tact. No aneurysm or dissection. There is normal contrast opacification of the pulmonary arteries. No filling defect. The thoracic spine is intact. No compression fracture. The sternum is intact. IMPRESSION: Negative exam. No evidence of pulmonary embolism. No change compared to old exam.
[2022-08-30 03:22] VITALS: BP 125/90; PULSE 85; RESP 16
== END 2022-08-30 03:36 | disposition home or self-care (01) ==
LOC: EC 01:11
DX: R07.89 Other chest pain (principal); Z87.891 Personal history of nicotine dependence
CPT/HCPCS: 36415; 93005; 85379; 83880; 80053; 83690; 83735; 84484; 85025; 85610; 85730; 71045; 71275; 74177; 99285; Q9967